=== PATIENT | male | born 1990 | race American Indian/Alaskan Native ===

== ENCOUNTER 2020-01-14 12:59 | Outpatient (CLI) | payer BC ==
--- NOTE | 2020-01-14 16:13 | XRay Report ---
XR spine lumbosacral 4+V HISTORY: BACK PAIN COMPARISON: None. TECHNIQUE: 5 view(s) of the lumbar spine obtained. FINDINGS: Vertebrae: Normal alignment. Vertebral body heights are preserved. Spondylosis:Disc space heights are preserved. IMPRESSION: 1. No significant abnormality of the lumbar spine. Signer Name: Neville Moore MD Signed: 01/14/2020 4:09 PM Workstation Name: [id number]
== END 2020-01-14 13:00 | disposition home or self-care (01) ==
LOC: XRAY 12:59
PROVIDERS: ATTEND Orthopaedic Surgery
DX: M54.5 Low back pain (principal)
CPT/HCPCS: 72110

== ENCOUNTER 2020-02-03 12:03 | Outpatient (CLI) | payer BC ==
--- NOTE | 2020-02-03 15:02 | Magnetic Resonance Report ---
MRI LUMBAR SPINE 02/03/2020 INDICATION / CLINICAL INFORMATION: LOWER BACK PAIN. Prior history of trauma COMPARISON: None available. FINDINGS: GENERAL OBSERVATIONS: Unenhanced MR images of the lumbar spine were obtained. Right convex scoliosis is centered at the L1-2 level. Vertebral body alignment is otherwise unremarka ble. There is no evidence of acute or recent traumatic injury. Vertebral body height is well preserved at all levels. Disc profiles are normal at all levels, with no evidence of disc herniation, nerve root compression, or canal stenosis. BONE MARROW: No significant abnormality. SPINAL CORD/CAUDA EQUINA: Normal. PARASPINAL SOFT TISSUES: No significant abnormality. IMPRESSION: Essentially negative unenhanced MRI of the lumbar spine. Mild right convex scoliosis. Signer Name: Ronn Kang MD Signed: 02/03/2020 2:57 PM Workstation Name: [id number]
== END 2020-02-03 12:04 | disposition home or self-care (01) ==
LOC: MRI 12:03
PROVIDERS: ATTEND Orthopaedic Surgery
DX: M41.86 Other forms of scoliosis, lumbar region (principal)
CPT/HCPCS: 72148